=== PATIENT | female | born 1985 | race African-American/Black ===

== ENCOUNTER 2016-06-29 15:44 | Emergency (ER) | payer OTHER ==
[2016-06-29 15:51] VITALS: BP 127/87; PULSE 88; TEMP 98.4; BMI 33.4
--- NOTE | 2016-06-29 18:01 | PDOC ---
History of Present Illness - General History Source: Patient, Old Records Exam Limitations: No Limitations - History of Present Illness Initial Comments: 06/29/16 18:53 The patient is a 30 year old female, with a significant past medical history of asthma and PE (02/22/2015; patient states she was on Xarelto for PE but is no longer), who presents to the emergency department with flu like symptoms (low grade fevers/chills/body aches/productive cough) for the past 2 weeks. The patient states that she has been coughing up brownish green phlegm. The patient states that she saw her PCP one week ago, who started her on a Z-pack for her symptoms. The patient states that today she began vomiting so she decided to visit an ED for evaluation. She additionally reports an episode of right sided epistaxis earlier today. The patient denies shortness of breath or chest pain. The patient denies diarrhea, constipation, abdominal pain or any dysuria. Allergies: None reported. Past Surgical History: None reported. Social History: Non smoker. Reports social alcohol use. Denies drug use. PCP: Dr. Sena <Nova Swain - Last Filed: 06/29/16 19:27> - General History Source: Patient, Old Records Exam Limitations: No Limitations <Dolores Lambert - Last Filed: 06/29/16 21:10> - General Chief Complaint: Nausea/Vomiting Stated Complaint: CHEST PAIN Time Seen by Provider: 06/29/16 18:01 Past History <Nova Swain - Last Filed: 06/29/16 19:27> - Past Medical History Asthma: Yes Cardiac Disorders: Yes (P.E) - Psycho/Social/Smoking Cessation Hx Anxiety: No Suicidal Ideation: No Smoking History: Never smoked Have you smoked in the past 12 months: No Information on smoking cessation initiated: No Hx Alcohol Use: No Drug/Substance Use Hx: No Substance Use Type: None <Dolores Lambert - Last Filed: 06/29/16 21:10> - Past Medical History Allergies/Adverse Reactions: Allergies Allergy/AdvReac Type Severity Reaction Status Date / Time No Known Allergies Allergy Verified 06/29/16 15:45 Home Medications: Ambulatory Orders Azithromycin [Zithromax Tri-Jose Martin] 500 mg PO DAILY 06/29/16 Review of Systems - Review of Systems Able to Perform ROS?: Yes Comments:: 06/29/16 18:53 GENERAL/CONSTITUTIONAL: +Fever, chills, body aches. No weakness. HEAD, EYES, EARS, NOSE AND THROAT: +Epistaxis. No change in vision. No ear pain or discharge. No sore throat. CARDIOVASCULAR: No chest pain or shortness of breath. RESPIRATORY: +Cough. No wheezing or hemoptysis. GASTROINTESTINAL: +Nausea, vomiting. No diarrhea or constipation. GENITOURINARY: No dysuria, frequency, or change in urination. MUSCULOSKELETAL: No joint or muscle swelling or pain. No neck or back pain. SKIN: No rash. NEUROLOGIC: No headache, vertigo, loss of consciousness, or change in strength/ sensation. ENDOCRINE: No increased thirst. No abnormal weight change. HEMATOLOGIC/LYMPHATIC: No anemia, easy bleeding, or history of blood clots. ALLERGIC/IMMUNOLOGIC: No hives or skin allergy. <Nova Swain - Last Filed: 06/29/16 19:27> *Physical Exam - Vital Signs Last Vital Signs Temp Pulse Resp BP Pulse Ox 98.4 F 88 18 127/87 100 06/29/16 15:46 06/29/16 15:46 06/29/16 15:46 06/29/16 15:46 06/29/16 15:46 - Physical Exam Comments: 06/29/16 19:27 GENERAL: Awake, alert, and fully oriented, in no acute distress. HEAD: No signs of trauma. EYES: PERRLA, EOMI, sclera anicteric, conjunctiva clear. ENT: Friable nasal mucosa. Auricles normal inspection, hearing grossly normal, nares patent, oropharynx clear without exudates. Moist mucosa. NECK: Normal ROM, supple, no lymphadenopathy, JVD, or masses. LUNGS: Breath sounds equal, clear to auscultation bilaterally. No wheezes, and no crackles. HEART: Regular rate and rhythm, normal S1 and S2, no murmurs, rubs or gallops. ABDOMEN: Soft, nontender, normoactive bowel sounds. No guarding, no rebound. No masses. EXTREMITIES: Normal range of motion, no edema. No clubbing or cyanosis. No cords, erythema, or tenderness. NEUROLOGICAL: Cranial nerves II through XII grossly intact. Normal speech, normal gait. SKIN: Warm, dry, normal turgor, no rashes or lesions noted. <Nova Swain - Last Filed: 06/29/16 19:27> - Vital Signs Last Vital Signs Temp Pulse Resp BP Pulse Ox 98.4 F 88 18 127/87 100 06/29/16 15:46 06/29/16 15:46 06/29/16 15:46 06/29/16 15:46 06/29/16 15:46 <Dolores Lambert - Last Filed: 06/29/16 21:10> ED Treatment Course - LABORATORY CBC & Chemistry Diagram: 06/29/16 18:30 06/29/16 18:30 <Nova Swain - Last Filed: 06/29/16 19:27> - LABORATORY CBC & Chemistry Diagram: 06/29/16 18:30 06/29/16 19:47 <Dolores Lambert - Last Filed: 06/29/16 21:10> Medical Decision Making - Medical Decision Making 06/29/16 20:05 30-year-old female with history of pulmonary embolism who presents to the emergency Department with complaints of 2-1/2 week history of cough productive with green sputum and, body aches, subjective fevers and vomiting today. Differential diagnosis includes but is not limited to: Influenza, pneumonia, viral URI, dehydration, electrolyte abnormality, toxic/metabolic derangement. 9 plan: 1. Labs 2. IV fluids for hydration 3. Chest x-ray 4. Urine analysis 5. Observe and reevaluate 06/29/16 21:08 Addendum: The labs were reviewed and are noted in the EMR. The patient chest x- ray appears normal with no acute infiltrates. I have discussed all of the labs and the chest x-ray with the patient. The plan is to discharge home with follow- up with her primary care physician within one week. I've advised the patient to finish her course of antibiotics as previously prescribed. She may return to the emergency department if her symptoms persist, worsen, or new symptoms arise. <Dolores Lambert - Last Filed: 06/29/16 21:10> *DC/Admit/Observation/Transfer - Attestations Scribe Attestion: 06/29/16 18:12 Documentation prepared by Nova Swain, acting as medical certification specialist for Dolores Lambert MD. <Nova Swain - Last Filed: 06/29/16 19:27> - Discharge Dispostion Admit: No - Attestations Physician Attestion: 06/29/16 20:06 I, Dr. Dolores Lambert, attest that the scribes documentation that appears above has been prepared under my direction and personally reviewed by me in its entirety. I confirmed that the note above accurately reflects all work, treatment, procedures, and medical decision-making performed by me. <Dolores Lambert - Last Filed: 06/29/16 21:10> Diagnosis at time of Disposition: URI, acute - Discharge Dispostion Disposition: HOME Condition at time of disposition: Stable - Referrals Referrals: Timothy Sena [Primary Care Provider] - - Patient Instructions Additional Instructions: You have an upper respiratory infection. Continue your antibiotics as previously prescribed by her physician. Fluids as tolerated. Follow-up with her primary care physician within one week. Return to the emergency department if your symptoms persist, worsen, or new symptoms arise. - Post Discharge Activity Work/School Note: Back to Work
[2016-06-29] MEDS ORDERED: ONDANSETRON 4 MG/2 ML VIAL IVPUSH ONE (18:14)
[2016-06-29] MEDS ORDERED: SODIUM CHLORIDE 1,000 ML IV STA (18:14)
[2016-06-29 18:46] LABS: BASOPHIL 0.6 % (0-2.0); EOSINOPHIL 0.5 % (0-4.5); MCH 29.1 pg (25.7-33.7); MEAN CELL VOLUME 88.1 fl (80-96); MEAN PLT VOLUME 9.1 fl (7.5-11.1); NEUTROPHILS 73.6 % (42.8-82.8); PLATELET COUNT 323 K/MM3 (134-434); RDW 16.9 % (11.6-15.6); WHITE BLOOD COUNT 5.3 K/mm3 (4.0-10.0)
[2016-06-29 19:13] LABS: URINE APPEARANCE CLEAR; URINE BILIRUBIN NEGATIVE (NEGATIVE); URINE BLOOD NEGATIVE (NEGATIVE); URINE COLOR YELLOW; URINE GLUCOSE (UA) NEGATIVE (NEGATIVE); URINE KETONE NEGATIVE (NEGATIVE); URINE NITRITE NEGATIVE (NEGATIVE); URINE PROTEIN NEGATIVE (NEGATIVE); URINE UROBILINOGEN NEGATIVE E.U./dl (0.2-1.0)
[2016-06-29 19:15] LABS: URINE LEUK ESTERASE 1+ (NEGATIVE)
[2016-06-29 19:17] LABS: URINE MUCUS RARE; URINE RBC 1 /hpf (0-3); URINE WBC 9 /hpf (3-5)
[2016-06-29 20:30] LABS: ALBUMIN 3.6 g/dl (3.4-5.0); ALK PHOS 113 U/L (45-117); ANION GAP 10 (8-16); BILIRUBIN,TOTAL 0.4 mg/dL (0.2-1.0); CALCIUM 8.2 mg/dL (8.5-10.1); CO2 23 mmol/L (21-32); CREATININE 0.9 mg/dL (0.55-1.02); GLUCOSE,RANDOM 93 mg/dL (74-106); SGOT/AST 108 U/L (15-37); SGPT/ALT 100 U/L (12-78); TOT PROT 7.6 g/dl (6.4-8.2)
--- NOTE | 2016-07-01 16:24 | EKG ---
Test Reason : Blood Pressure : / mmHG Vent. Rate : 088 BPM Atrial Rate : 088 BPM P-R Int : 136 ms QRS Dur : 082 ms QT Int : 362 ms P-R-T Axes : 052 037 022 degrees QTc Int : 438 ms SINUS RHYTHM ABNORMAL ECG WHEN COMPARED WITH ECG OF 22-FEB-2015 01:48, VENT. RATE HAS DECREASED Confirmed by RUDY VALDOVINOS MD ([id number]) on 07/01/2016 4:23:24 PM Referred By: Confirmed By:RUDY VALDOVINOS MD
== END 2016-06-29 21:29 | disposition home or self-care (01) ==
LOC: JER 15:44
PROC: 3E0337Z Introduction of Electrolytic and Water Balance Substance into Peripheral Vein, Percutaneous Approach (ICD-10-PCS; principal; 2016-06-29)
DX: J06.9 Acute upper respiratory infection, unspecified (principal)
CPT/HCPCS: 36415; 71020-TC; 80053; 81003; 81015; 83690; 84703; 85025; 93005; 93010; 99284-25